=== PATIENT | male | born 1955 | race Caucasian/White ===

== ENCOUNTER 2021-12-29 10:31 | Emergency (ER) | payer MEDICARE, SELFPAY ==
[2021-12-29 10:38] VITALS: BP 132/72; PULSE 102; RESP 20; TEMP 36.6; O2SAT 97
[2021-12-29 11:11] VITALS: BP 158/76; PULSE 98; O2SAT 98
[2021-12-29] MEDS: ondansetron 4 MG Tablet PO (11:22)
[2021-12-29 11:26] LABS: Add Urine Microscopic? NO; Charge for UA Resulting for Rev
--- NOTE | 2021-12-29 11:30 | XRR_ITS ---
PROCEDURE INFORMATION: Exam: XR Abdomen Exam date and time: 12/29/2021 12:00 PM Age: 66 years old Clinical indication: Abdominal pain; Localized; Left lower quadrant (llq); Additional info: Llq pain TECHNIQUE: Imaging protocol: Radiologic exam of the abdomen. Views: 2 Views. Upright and supine views. COMPARISON: CR XR chest 1V [id number] 12/24/2018 6:05 PM FINDINGS: Gastrointestinal tract: Normal. No bowel dilation. Intraperitoneal space: Normal. No free air. Bones/joints: Unremarkable for age. XR/XR abdomen min 2V [id number] IMPRESSION: No acute findings.
[2021-12-29] MEDS: famotidine 20 mg/2 mL INJ 40 MG IVP (11:38)
[2021-12-29 11:40] LABS: Basophils % 0.2 %; Eosinophils % 0.2 %; Hematocrit 48.9 % (42.0-52.0); Hemoglobin 16.7 g/dL (11.7-16.6); Lymphocytes # 0.5 10^3/uL (0.8-4.8); Lymphocytes % 5.6 %; Mean Corpuscular HGB Conc 34.2 g/dL (30.0-36.0); Mean Corpuscular Hemoglobin 30.8 pg (28.0-34.0); Mean Corpuscular Volume 90.1 fl (80-94); Mean Platelet Volume 10.5 fL (7.4-10.4); Monocytes # 0.7 10^3/uL (0.2-0.9); Neutrophils # 8.35 10^3/uL (1.8-7.7); Neutrophils % 86.6 %; Nucleated Red Blood Cells % 0 %; Platelet Count 219 10^3/cmm (130-400); Red Blood Count 5.43 10^6/uL (4.1-5.3); Red Cell Distribution Width 12.7 % (12.1-15.1); White Blood Count 9.6 10^3/uL (4.0-10.0)
[2021-12-29 11:45] LABS: Urine Appearance Clear (CLEAR); Urine Color Yellow (Yellow); pH Urine 5 (5-7)
[2021-12-29 11:46] LABS: Bilirubin Urine Neg (Negative); Blood Urine Neg (Negative); Glucose Urine UA 1+ (Normal); Ketones Urine 1+ (Negative); Leukocyte Esterase Urine Negative (Negative); Nitrate Urine Negative (Negative); Protein Urine Neg (Negative); Urobilinogen Urine Norm (Negative)
[2021-12-29 12:30] VITALS: BP 122/58; O2SAT 93
[2021-12-29 13:01] LABS: Alanine Aminotransferase 64 U/L (0-41); Albumin Level 4.7 g/dL (3.5-5.2); Alkaline Phosphatase 66 U/L (40-130); Blood Urea Nitrogen 21 mg/dL (8-23); C Reactive Protein 27.3 mg/L (0.0-4.9); Calcium 9.3 mg/dL (8.5-10.5); Carbon Dioxide 19 mmol/L (22-29); Chloride 97 mmol/L (98-107); Globulin 2.6 g/dL (1.3-4.6); Glomerular Filtration Rate 84.2 mL/min (90-130); Glucose 180 mg/dL (65-115); Lipase 20 U/L (13-60); Osmolality Calculated 282 mOsm/kg (285-295); Sodium 132 mmol/L (136-145); Total Bilirubin 0.6 mg/dL (0.15-1.2); Total Protein 7.3 g/dL (6.6-8.7)
[2021-12-29 13:02] LABS: Anion Gap 20.4 (5-19); Aspartate Amino Transferase 36 U/L (0-40); Potassium 4.4 mmol/L (3.5-5.1)
--- NOTE | 2021-12-29 13:16 | CTR_ITS ---
PROCEDURE INFORMATION: Exam: CT Abdomen And Pelvis With Contrast Exam date and time: 12/29/2021 1:24 PM Age: 66 years old Clinical indication: Abdominal pain; Localized; Left lower quadrant (llq); Additional info: Llq pain TECHNIQUE: Imaging protocol: Computed tomography of the abdomen and pelvis with contrast. Radiation optimization: All CT scans at this facility use at least one of these dose optimization techniques: automated exposure control; mA and/or kV adjustment per patient size (includes targeted exams where dose is matched to clinical indication); or iterative reconstruction. Contrast material: OMNI 350; Contrast volume: 100 ml; Contrast route: INTRAVENOUS (IV); COMPARISON: CR (ABDOMEN, ) 12/29/2021 12:00 PM RADIATION DOSE METRICS: Total DLP (mGy-cm): 1083.23 FINDINGS: Liver: Hepatic lucency is seen consistent with steatosis. No mass. Gallbladder and bile ducts: Normal. No calcified stones. No ductal dilation. Pancreas: Normal. No ductal dilation. Spleen: Normal. No splenomegaly. Adrenal glands: Normal. No mass. Kidneys and ureters: Bilateral benign renal cysts are seen. No hydronephrosis. Stomach and bowel: There is diverticulosis of the sigmoid colon No obstruction. No mucosal thickening. Appendix: No evidence of appendicitis. Normal appearing appendix Intraperitoneal space: Unremarkable. No free air. No significant fluid collection. Vasculature: Unremarkable. No abdominal aortic aneurysm. Lymph nodes: Unremarkable. No enlarged lymph nodes. Urinary bladder: Unremarkable as visualized. Reproductive: Unremarkable as visualized. 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 Soft tissues: Unremarkable. CT/CT abdomen pelvis w con* [id number] IMPRESSION: 1. No acute findings. 2. Hepatic steatosis. 3. Sigmoid colon diverticulosis 4. Bilateral renal cyst COMMENTS: Consistent with the [employer]'s Incidental Findings Committee white paper (J Am Davion Radiol 2018): Any incidental renal lesion less than 1 cm or classified as too small to characterize, or any incidental cystic renal lesion characterized as simple-appearing, is likely benign. No follow-up imaging is recommended for these lesions per consensus recommendations based on imaging criteria.
[2021-12-29] MEDS: iohexol 350 mg/mL 500 mL Btl (per mL) 100 ML IV (13:26)
--- NOTE | 2021-12-29 13:26 | W.ED.ABDPA2 ---
HPI - Abdominal Pain General: Chief Complaint: Abdominal Pain Stated Complaint: nausea, abd discomfort Time Seen by Provider: 12/29/21 11:23 History of Present Illness: 66-year-old male presents with left lower quadrant abdominal pain. Reports that its started during the evening and night last night and is just gone and gotten worse. He has some mild nausea no vomiting or diarrhea. No fevers or chills. Associated Symptoms: Reports nausea; Denies chills, diarrhea, fever(s) and vomiting Review of Systems Const: Denies: fever(s) or chills Eyes: Denies: change in vision or eye discharge ENMT: Denies: throat pain or ear or mastoid pain Card: Denies: chest pain or palpitations Resp: Denies: dyspnea or productive cough GI: Reports: abdominal pain and nausea; Denies: vomiting or diarrhea : Denies: flank pain or difficulty urinating Musc: Denies: neck pain or back pain Skin/Breast: Denies: rash or erythema Physical Exam Const: COMMON NORMALS: no acute distress, no limitations and alert HENMT: COMMON NORMALS: hearing grossly normal bilaterally and moist oral mucous membranes Eye: COMMON NORMALS: EOMs intact bilaterally and conjunctivae normal CONJUNCTIVA: Yes conjunctivae normal Chest: CHEST: Yes Symmetrical chest wall rise Resp: COMMON NORMALS: normal respiratory effort, No use of accessory muscles and clear to auscultation bilaterally AUSCULTATION: clear to auscultation bilaterally Cardio: COMMON NORMALS: regular rate and regular rhythm RATE: regular rate RHYTHM: regular rhythm GI: COMMON NORMALS: Soft to palpation PALPATION: Yes Soft to palpation, Yes Tenderness to palpation present (GI) Details: LLQ and LUQ and No Guarding due to palpation present (GI) : COMMON NORMALS: Yes no CVA tenderness BLADDER/KIDNEY EXAM: Yes no CVA tenderness Back/Pelvis: COMMON NORMALS: no CVA tenderness Extremity: COMMON NORMALS: full ROM and capillary refill normal Neuro: COMMON NORMALS: moves all extremities, no focal motor deficits and no sensory deficits noted SENSORIUM/ORIENTATION: Yes alert Psych: COMMON NORMALS: Normal thought process present, cooperative and normal affect THOUGHT PROCESS: Normal thought process present Skin: COMMON NORMALS: no rashes or lesions noted and turgor normal GENERAL SKIN EXAM: no rashes or lesions noted and turgor normal Course Vital Signs: Vital signs: Vital Signs Temperature 97.8 F 12/29/21 10:38 Pulse Rate 84 12/29/21 14:19 Respiratory Rate 20 H 12/29/21 10:38 Blood Pressure 111/76 12/29/21 14:19 Pulse Oximetry 93 12/29/21 12:30 Oxygen Delivery Me thod 12/29/21 11:11 MDM - Abdominal Pain Medical Decision Making Patient with slight elevation of CRP. However no acute findings on CT abdomen pelvis. Suspect that he likely has maybe a mild viral gastroenteritis versus potential food poisoning. Patient will be given Bentyl to help with the discomfort along with some Reglan to help with some nausea and what he feels like his difficulty with bowel movements occasionally. Patient should follow-up with his primary care provider in a couple days if his symptoms or not improving. Patient stable and discharged home Lab Data 12/29/21 11:33 12/29/21 12:30 Labs/Radiology: Radiology Impressions Abdomen X-Ray 12/29/21 11:30 IMPRESSION: No acute findings. Abdomen/Pelvis CT 12/29/21 13:16 IMPRESSION: 1. No acute findings. 2. Hepatic steatosis. 3. Sigmoid colon diverticulosis 4. Bilateral renal cyst COMMENTS: Consistent with the [employer]'s Incidental Findings Committee white paper (J Am Davion Radiol 2018): Any incidental renal lesion less than 1 cm or classified as too small to characterize, or any incidental cystic renal lesion characterized as simple-appearing, is likely benign. No follow-up imaging is recommended for these lesions per consensus recommendations based on imaging criteria. Laboratory Results WBC 9.6 10^3/uL (4.0-10.0) 12/29/21 11:33 RBC 5.43 10^6/uL (4.1-5.3) H 12/29/21 11:33 Hgb 16.7 g/dL (11.7-16.6) H 12/29/21 11:33 Hct 48.9 % (42.0-52.0) 12/29/21 11:33 MCV 90.1 fl (80-94) 12/29/21 11:33 MCH 30.8 pg (28.0-34.0) 12/29/21 11:33 MCHC 34.2 g/dL (30.0-36.0) 12/29/21 11:33 RDW 12.7 % (12.1-15.1) 12/29/21 11:33 Plt Count 219 10^3/cmm (130-400) 12/29/21 11:33 MPV 10.5 fL (7.4-10.4) H 12/29/21 11:33 Neut % (Auto) 86.6 % 12/29/21 11:33 Lymph % (Auto) 5.6 % 12/29/21 11:33 [place] % (Auto) 7.0 % 12/29/21 11:33 Eos % (Auto) 0.2 % 12/29/21 11:33 Baso % (Auto) 0.2 % 12/29/21 11:33 Neut # (Auto) 8.35 10^3/uL (1.8-7.7) H 12/29/21 11:33 Lymph # (Auto) 0.5 10^3/uL (0.8-4.8) L 12/29/21 11:33 [place] # (Auto) 0.7 10^3/uL (0.2-0.9) 12/29/21 11:33 Eos # (Auto) 0.0 10^3/uL (0.0-0.8) 12/29/21 11:33 Baso # (Auto) 0.0 10^3/uL (0.0-0.1) 12/29/21 11:33 Nucleated RBC % (auto) 0 % 12/29/21 11:33 Nucleated RBCs # 0.0 /100WBC 12/29/21 11:33 Sodium 132 mmol/L (136-145) L 12/29/21 12:30 Potassium 4.4 mmol/L (3.5-5.1) 12/29/21 12:30 Chloride 97 mmol/L (98-107) L 12/29/21 12:30 Carbon Dioxide 19 mmol/L (22-29) L 12/29/21 12:30 Anion Gap 20.4 (5-19) H 12/29/21 12:30 BUN 21 mg/dL (8-23) 12/29/21 12:30 Creatinine 0.9 mg/dL (0.7-1.2) 12/29/21 12:30 GFR Calculation 84.2 mL/min (90-130) L 12/29/21 12:30 Glucose 180 mg/dL (65-115) H 12/29/21 12:30 Calculated Osmolality 282 mOsm/kg (285-295) L 12/29/21 12:30 Calcium 9.3 mg/dL (8.5-10.5) 12/29/21 12:30 Total Bilirubin 0.6 mg/dL (0.15-1.2) 12/29/21 12:30 AST 36 U/L (0-40) 12/29/21 12:30 ALT 64 U/L (0-41) H 12/29/21 12:30 Alkaline Phosphatase 66 U/L (40-130) 12/29/21 12:30 C-Reactive Protein 27.3 mg/L (0.0-4.9) H 12/29/21 12:30 Total Protein 7.3 g/dL (6.6-8.7) 12/29/21 12:30 Albumin 4.7 g/dL (3.5-5.2) 12/29/21 12:30 Globulin 2.6 g/dL (1.3-4.6) 12/29/21 12:30 Lipase 20 U/L (13-60) 12/29/21 12:30 Urine Color Yellow (Yellow) 12/29/21 11:21 Urine Appearance Clear (CLEAR) 12/29/21 11:21 Urine pH 5 (5-7) 12/29/21 11:21 Ur Specific [place] 1.020 (1.005-1.030) 12/29/21 11:21 Urine Protein Neg (Negative) 12/29/21 11:21 Urine Glucose (UA) 1+ (Normal) H 12/29/21 11:21 Urine Ketones 1+ (Negative) H 12/29/21 11:21 Urine Blood Neg (Negative) 12/29/21 11:21 Urine Nitrate Negative (Negative) 12/29/21 11:21 Urine Bilirubin Neg (Negative) 12/29/21 11:21 Urine Urobilinogen Norm mg/dL (Negative) 12/29/21 11:21 Ur Leukocyte Esterase Negative (Negative) 12/29/21 11:21 Discharge Plan Discharge Patient Disposition: Home Clinical Impression: Left-sided abdominal pain of unknown etiology Condition: Stable Prescriptions: New Reglan 5 mg tablet 5 mg PO QID Qty: 20 0RF dicyclomine 20 mg tablet 20 mg PO TID PRN (Reason: abdominal discomfort) Qty: 20 0RF Discharge Orders: Discharge ED (Routine); Ordered 12/29/21 Ordered By: Miguel Ángel Dill Referrals: Earlene Iverson MD [Primary Care Provider] - Discharge Diet: Advance as tolerated Discharge Activity: Resume usual activity Patient Instructions: Abdominal Pain (ED), Opioid Safety, Pain Management Activity Restrictions/Additional Instructions: Follow-up with your primary care provider in 1 week if symptoms or not improved. Coding Level of Care Code ED Reinsurance Analyst for Chg Fwd Exam Comprehensive
[2021-12-29 14:19] VITALS: BP 111/76; PULSE 84
== END 2021-12-29 14:20 | disposition home or self-care (01) ==
PROVIDERS: Emergency Medicine; Emergency Provider Student in an Organized Health Care Education/Training Program; PCP Family Medicine
DX: R10.9 Unspecified abdominal pain (principal)
CPT/HCPCS: 36415; 74019; 74177; 80053; 81003; 83690; 85025; 86140; 96374; 99285; J3490; Q0162; Q9967

== ENCOUNTER 2022-02-22 07:01 | Emergency (ER) | payer MEDICARE, SELFPAY ==
[2022-02-22 07:05] VITALS: BP 155/81; PULSE 72; RESP 14; TEMP 36.4; O2SAT 99; BMI 35.7
--- NOTE | 2022-02-22 07:19 | XRR_ITS ---
PROCEDURE INFORMATION: Exam: XR Chest Exam date and time: 02/22/2022 7:41 AM Age: 66 years old Clinical indication: Pain; Right-sided; Additional info: Chest pain TECHNIQUE: Imaging protocol: Radiologic exam of the chest. Views: 1 view. COMPARISON: CR XR chest 1V [id number] 12/24/2018 6:05 PM FINDINGS: Lungs: No airspace infiltrate. Pleural spaces: No evidence of pleural effusion or pneumothorax. Heart/Mediastinum: Unremarkable. No cardiomegaly. Bones/joints: No significant osseous abnormality. XR/XR chest 1V portable [id number] IMPRESSION: No acute findings.
--- NOTE | 2022-02-22 07:21 | ECG_ITS ---
[facility] Test Date: 2022-02-22 Pat Name: Coy Young Department: Room: Gender: Male Payment Processor: : 1955 Requested By: Dionicio Azar Order Number: [id number] Reading MD: Horace Benitez M.D. Measurements Intervals [place] Rate: 64 P: 27 DC: 155 QRS: 56 QRSD: 95 T: 56 QT: 391 QTc: 404 Interpretive Statements SINUS RHYTHM WITH OCCASIONAL VENTRICULAR PREMATURE COMPLEXES Compared to ECG 12/24/2018 17:17:41 Ventricular premature complex(es) now present Electronically Signed On 02-22-2022 14:25:31 [employer]CE[employer]ENT by Horace Benitez M.D. [email or web address]
--- NOTE | 2022-02-22 07:21 | W.ED.CHESTPA ---
Documented by User: ABDELRAHMAN Ho 02/22/22 11:09 HPI - Chest Pain General: Chief Complaint: Chest Pain Stated Complaint: chest/back/right arm pain Time Seen by Provider: 02/22/22 07:05 History of Present Illness: Patient is a 66-year-old male that presents to the emergency department with midline thoracic back pain that radiates to sternal chest pain. Onset of symptoms, woke him up this morning. Patient denies shortness of breath nausea or vomiting. Denies syncope or dizziness. Denies fever or chills. Patient has had similar issues with thoracic back pain in the past. This usually resolves with activity. Today, his symptoms did not Patient did have a recent upper respiratory illness, last week. He was treated with amoxicillin twice daily for 7 days. Patient does have an medical history that includes diabetes, hypertension, sleep apnea, arrhythmia. Patient is immunized for flu and COVID. Associated symptoms: Deny abdominal pain, dyspnea, fever(s), nausea, palpitations or vomiting Review of Systems General: Reports: 10 or more systems reviewed and unremarkable except in HPI and below Const: Denies: fever(s), chills, change in appetite, change in weight, fatigue or malaise Eyes: Denies: change in vision, eye discomfort, eye discharge or eye redness ENMT: Denies: throat pain, enlarged tonsils, odynophagia, hoarseness, ear or mastoid pain, ear discharge, change in hearing, tinnitus, nasal discharge, nasal congestion, post nasal drip or sinus pain Card: Denies: chest pain, palpitations, irregular heart rhythm, edema, dyspnea on exertion, orthopnea or leg pain with exertion Resp: Denies: dyspnea, productive cough, non-productive cough, wheezing, stridor or chest congestion GI: Denies: abdominal pain, nausea, vomiting, dysphagia, diarrhea, constipation, bloating, GI cramping or hematochezia : Denies: flank pain, dysuria, urinary frequency, urinary urgency, urinary hesitancy, oliguria or hematuria Musc: Denies: neck pain, back pain, extremity pain, joint pain, joint swelling, joint redness, joint warmth or muscle weakness Skin/Breast: Denies: rash, pruritus, erythema, photosensitivity or new lesions Neuro: Denies: headache(s), numbness in extremities, weakness in extremities, sensory changes, lack of coordination, difficulty walking, frequent falls, dizziness, confusion, Slurred speech present, difficulty communicating thoughts, seizure-like activity or involuntary movements Endo: Denies: polyuria, polydipsia or tired all the time Shankar/Lymph: Denies: easy bruising or easy bleeding Physical Exam Const: COMMON NORMALS: no acute distress, average body habitus, patient oriented x3 and well nourished GENERAL APPEARANCE: cooperative ORIENTATION/CONSCIOUSNESS: Yes oriented to person, Yes oriented to place and Yes oriented to time HENMT: COMMON NORMALS: normocephalic, atraumatic and hearing grossly normal bilaterally HEAD & SCALP: normal to inspection, normocephalic and atraumatic FACE & SINUS: face symmetric MOUTH: Normal oral and palatal mucosa present Eye: COMMON NORMALS: Equal, round and reactive pupils present, EOMs intact bilaterally and no scleral icterus ALIGNMENT: Yes alignment normal PUPIL: Yes Equal, round and reactive pupils present Neck/C-Spine: COMMON NORMALS: full ROM, supple, no meningeal signs and no JVD GENERAL: Yes normal visual inspection CERVICAL SPINE: Yes cervical ROM normal Lymph: LYMPHATIC: no lymphadenopathy noted Chest: COMMONS NORMALS: normal inspection of the chest Breast/axilla inspection: Yes no chest deformity, asymmetry, normal contours, no nodules, masses, tenderness Resp: COMMON NORMALS: normal respiratory effort, No retractions, No use of accessory muscles and clear to auscultation bilaterally EFFORT & INSPECTION: Yes able to speak in complete sentences, Yes symmetric chest movement, No abnormal respiratory pattern, No tachypneic and No respiratory distress AUSCULTATION: clear to auscultation bilaterally Cardio: COMMON NORMALS: no JVD, regular rate, regular rhythm and Peripheral pulses 2+ throughout RATE: regular rate RHYTHM: regular rhythm PERIPHERAL PULSES: Peripheral pulses 2+ throughout GI: COMMON NORMALS: Normal to inspection, nondistended, normoactive bowel sounds present, Soft to palpation and non-tender INSPECTION: Yes normal to inspection PALPATION: Yes Soft to palpation Back/Pelvis: COMMON NORMALS: thoracic and lumbar spine normal to inspection, no thoracic nor lumbar tenderness, thoraco-lumbar ROM normal and straight leg raise negative bilaterally GENERAL BACK: No ecchymosis THORACIC SPINE/UPPER BACK: Yes normal to inspection LUMBAR SPINE/LOWER BACK: Yes normal to inspection and Yes straight leg raise negative bilaterally Extremity: COMMON NORMALS: normal to inspection, full ROM and capillary refill normal GENERAL: Yes normal exam except as noted Neuro: COMMON NORMALS: patient oriented x3 SENSORIUM/ORIENTATION: Yes oriented to person, Yes oriented to place and Yes oriented to time MENINGEAL SIGNS: Yes no meningeal signs Psych: COMMON NORMALS: mental status grossly normal, Normal thought process present, cooperative, normal affect, speech normal and activity/motor behavior normal SPEECH: Yes normal speech THOUGHT PROCESS: Normal thought process present Course Vital Signs: Vital signs: Vital Signs Temperature 97.6 F 02/22/22 07:05 Pulse Rate 66 02/22/22 09:18 Respiratory Rate 18 02/22/22 08:07 Blood Pressure 144/86 02/22/22 09:18 Pulse Oximetry 97 02/22/22 09:18 Oxygen Delivery Me thod 02/22/22 08:07 MDM - Chest Pain Medical Decision Making Patient arrives with complaints of thoracic back pain that radiates to his sternum. Onset sometime during the night. History of AV block, hypertension, diabetes. Patient also has a history of kidney stones. In reviewing his records, he has a history of high-grade AV block that was observed on Holter monitor in the fall 2021. He was referred to tower air traffic control specialist who recommended no intervention according to Dr Dunham at [facility]. Last echocardiogram was in 2020. At that time he had normal left ventricular function with an EF of 62%. Patient's differential diagnosis will include: ACS, congestive heart failure, pulmonary embolism, GERD, symptomatic hiatal hernia, COPD, asthma, pneumonia, pneumothorax, pericarditis, myocarditis, aortic dissection, kidney stone. EKG completed at 721 reveals sinus rhythm with occasional ventricular premature complexes. 64 bpm with a QTC of 400. No evidence of ectopy, ST elevation or abnormal T wave Patient was treated with morphine and Zofran. Had improvement in his symptoms. Laboratory studies reveal no leukocytosis, anemias, electrolyte disturbance, organ dysfunction. There is no evidence of heart failure and troponin is not elevated. Chest x-ray was unremarkable. He has undergone repeat EKG and repeat/2-hour troponin which is unchanged. His residual symptoms, I trialed a dose of Toradol. Symptoms continue to improve. Without complete resolution of his symptoms I did offer to further investigate this thoracic back pain that radiates to the sternum. I offered him a CT chest which she is declined. Patient is going to follow-up with Dr. High, his machine tool electrician, this week. I have advised the patient to return to the emergency department for new concerning or worsening symptoms. All questions answered Lab Data 02/22/22 07:40 02/22/22 07:40 Radiology Impressions Chest X-Ray 02/22/22 07:19 IMPRESSION: No acute findings. Laboratory Results WBC 7.6 10^3/uL (4.0-10.0) 02/22/22 07:40 RBC 5.15 10^6/uL (4.1-5.3) 02/22/22 07:40 Hgb 15.7 g/dL (11.7-16.6) 02/22/22 07:40 Hct 47.1 % (42.0-52.0) 02/22/22 07:40 MCV 91.5 fl (80-94) 02/22/22 07:40 MCH 30.5 pg (28.0-34.0) 02/22/22 07:40 MCHC 33.3 g/dL (30.0-36.0) 02/22/22 07:40 RDW 13.0 % (12.1-15.1) 02/22/22 07:40 Plt Count 253 10^3/cmm (130-400) 02/22/22 07:40 MPV 10.4 fL (7.4-10.4) 02/22/22 07:40 Neut % (Auto) 67.0 % 02/22/22 07:40 Lymph % (Auto) 19.7 % 02/22/22 07:40 [place] % (Auto) 10.6 % 02/22/22 07:40 Eos % (Auto) 1.1 % 02/22/22 07:40 Baso % (Auto) 0.7 % 02/22/22 07:40 Neut # (Auto) 5.08 10^3/uL (1.8-7.7) 02/22/22 07:40 Lymph # (Auto) 1.5 10^3/uL (0.8-4.8) 02/22/22 07:40 [place] # (Auto) 0.8 10^3/uL (0.2-0.9) 02/22/22 07:40 Eos # (Auto) 0.1 10^3/uL (0.0-0.8) 02/22/22 07:40 Baso # (Auto) 0.1 10^3/uL (0.0-0.1) 02/22/22 07:40 Nucleated RBC % (auto) 0 % 02/22/22 07:40 Nucleated RBCs # 0.0 /100WBC 02/22/22 07:40 Sodium 139 mmol/L (136-145) 02/22/22 07:40 Potassium 4.4 mmol/L (3.5-5.1) 02/22/22 07:40 Chloride 102 mmol/L (98-107) 02/22/22 07:40 Carbon Dioxide 24 mmol/L (22-29) 02/22/22 07:40 Anion Gap 17.4 (5-19) 02/22/22 07:40 BUN 15 mg/dL (8-23) 02/22/22 07:40 Creatinine 0.9 mg/dL (0.7-1.2) 02/22/22 07:40 GFR Calculation 84.2 mL/min (90-130) L 02/22/22 07:40 Glucose 153 mg/dL (65-115) H 02/22/22 07:40 POC Glucose 144 mg/dL (70-110) H 02/22/22 07:46 Calculated Osmolality 292 mOsm/kg (285-295) 02/22/22 07:40 Calcium 10.3 mg/dL (8.5-10.5) 02/22/22 07:40 Total Bilirubin 0.5 mg/dL (0.15-1.2) 02/22/22 07:40 AST 28 U/L (0-40) 02/22/22 07:40 ALT 68 U/L (0-41) H 02/22/22 07:40 Alkaline Phosphatase 69 U/L (40-130) 02/22/22 07:40 Troponin T Baseline 13 ng/L (0-15) 02/22/22 07:40 Troponin T 120 Minute 10.30 ng/L (0-15) 02/22/22 09:53 Delta Troponin T -2.7 ABS# (0-10) L 02/22/22 09:53 NT-Pro-B Natriuret Pep 35 pg/mL (0-125) 02/22/22 07:40 Total Protein 7.0 g/dL (6.6-8.7) 02/22/22 07:40 Albumin 4.5 g/dL (3.5-5.2) 02/22/22 07:40 Globulin 2.5 g/dL (1.3-4.6) 02/22/22 07:40 Lipase 25 U/L (13-60) 02/22/22 07:40 Urine Color Colorless (Yellow) 02/22/22 09:20 Urine Appearance Clear (CLEAR) 02/22/22 09:20 Urine pH 6.5 (5-7) 02/22/22 09:20 Ur Specific [place] 1.010 (1.005-1.030) 02/22/22 09:20 Urine Protein Neg (Negative) 02/22/22 09:20 Urine Glucose (UA) Norm (Normal) 02/22/22 09:20 Urine Ketones Negative (Negative) 02/22/22 09:20 Urine Blood Neg (Negative) 02/22/22 09:20 Urine Nitrate Negative (Negative) 02/22/22 09:20 Urine Bilirubin Neg (Negative) 02/22/22 09:20 Urine Urobilinogen Norm mg/dL (Negative) 02/22/22 09:20 Ur Leukocyte Esterase Negative (Negative) 02/22/22 09:20 Discharge Plan Discharge Patient Disposition: Home Clinical Impression: Atypical chest pain, Acute midline thoracic back pain Condition: Stable Prescriptions: No Action Reglan 5 mg tablet 5 mg PO QID Qty: 20 0RF dicyclomine 20 mg tablet 20 mg PO TID PRN (Reason: abdominal discomfort) Qty: 20 0RF Discharge Orders: Discharge ED (Routine); Ordered 02/22/22 Ordered By: Dionicio Nuñez Referrals: Earlene Iverson MD [Primary Care Provider] - Discharge Diet: Advance as tolerated Discharge Activity: Resume usual activity Patient Instructions: Chest Pain - Noncardiac, Back Pain (ED) Activity Restrictions/Additional Instructions: Please return to the emergency department for new concerning or worsening symptoms. Includes redevelopment of your thoracic back/chest pain and/or any development of shortness of breath, dizziness, syncope. Please take all your medications as prescribed Please follow-up with your primary doctor as scheduled Coding Level of Care Code ED Cork Molder for Chg Fwd Exam Comprehensive Documented by User: Vishal Marlow DO 02/24/22 06:03 HPI - Chest Pain General: Chief Complaint: Chest Pain Stated Complaint: chest/back/right arm pain Time Seen by Provider: 02/22/22 07:05 Course Vital Signs: Vital signs: Vital Signs Temperature 97.6 F 02/22/22 07:05 Pulse Rate 66 02/22/22 09:18 Respiratory Rate 18 02/22/22 08:07 Blood Pressure 144/86 02/22/22 09:18 Pulse Oximetry 97 02/22/22 09:18 Oxygen Delivery Me thod 02/22/22 08:07 MDM - Chest Pain Medical Decision Making Patient arrives with complaints of thoracic back pain that radiates to his sternum. Onset sometime during the night. History of AV block, hypertension, diabetes. Patient also has a history of kidney stones. In reviewing his records, he has a history of high-grade AV block that was observed on Holter monitor in the fall 2021. He was referred to tower air traffic control specialist who recommended no intervention according to Dr Dunham at [facility]. Last echocardiogram was in 2020. At that time he had normal left ventricular function with an EF of 62%. Patient's differential diagnosis will include: ACS, congestive heart failure, pulmonary embolism, GERD, symptomatic hiatal hernia, COPD, asthma, pneumonia, pneumothorax, pericarditis, myocarditis, aortic dissection, kidney stone. EKG completed at 721 reveals sinus rhythm with occasional ventricular premature complexes. 64 bpm with a QTC of 400. No evidence of ectopy, ST elevation or abnormal T wave Patient was treated with morphine and Zofran. Had improvement in his symptoms. Laboratory studies reveal no leukocytosis, anemias, electrolyte disturbance, organ dysfunction. There is no evidence of heart failure and troponin is not elevated. Chest x-ray was unremarkable. He has undergone repeat EKG and repeat/2-hour troponin which is unchanged. His residual symptoms, I trialed a dose of Toradol. Symptoms continue to improve. Without complete resolution of his symptoms I did offer to further investigate this thoracic back pain that radiates to the sternum. I offered him a CT chest which she is declined. Patient is going to follow-up with Dr. High, his machine tool electrician, this week. I have advised the patient to return to the emergency department for new concerning or worsening symptoms. All questions answered Chart reviewed and patient discussed with midlevel. Agree with assessment and plan. Medical Records I reviewed the patient's medical records. Lab Data I reviewed the patient's lab results. 02/22/22 07:40 02/22/22 07:40 Radiology Impressions Chest X-Ray 02/22/22 07:19 IMPRESSION: No acute findings. Laboratory Results WBC 7.6 10^3/uL (4.0-10.0) 02/22/22 07:40 RBC 5.15 10^6/uL (4.1-5.3) 02/22/22 07:40 Hgb 15.7 g/dL (11.7-16.6) 02/22/22 07:40 Hct 47.1 % (42.0-52.0) 02/22/22 07:40 MCV 91.5 fl (80-94) 02/22/22 07:40 MCH 30.5 pg (28.0-34.0) 02/22/22 07:40 MCHC 33.3 g/dL (30.0-36.0) 02/22/22 07:40 RDW 13.0 % (12.1-15.1) 02/22/22 07:40 Plt Count 253 10^3/cmm (130-400) 02/22/22 07:40 MPV 10.4 fL (7.4-10.4) 02/22/22 07:40 Neut % (Auto) 67.0 % 02/22/22 07:40 Lymph % (Auto) 19.7 % 02/22/22 07:40 [place] % (Auto) 10.6 % 02/22/22 07:40 Eos % (Auto) 1.1 % 02/22/22 07:40 Baso % (Auto) 0.7 % 02/22/22 07:40 Neut # (Auto) 5.08 10^3/uL (1.8-7.7) 02/22/22 07:40 Lymph # (Auto) 1.5 10^3/uL (0.8-4.8) 02/22/22 07:40 [place] # (Auto) 0.8 10^3/uL (0.2-0.9) 02/22/22 07:40 Eos # (Auto) 0.1 10^3/uL (0.0-0.8) 02/22/22 07:40 Baso # (Auto) 0.1 10^3/uL (0.0-0.1) 02/22/22 07:40 Nucleated RBC % (auto) 0 % 02/22/22 07:40 Nucleated RBCs # 0.0 /100WBC 02/22/22 07:40 Sodium 139 mmol/L (136-145) 02/22/22 07:40 Potassium 4.4 mmol/L (3.5-5.1) 02/22/22 07:40 Chloride 102 mmol/L (98-107) 02/22/22 07:40 Carbon Dioxide 24 mmol/L (22-29) 02/22/22 07:40 Anion Gap 17.4 (5-19) 02/22/22 07:40 BUN 15 mg/dL (8-23) 02/22/22 07:40 Creatinine 0.9 mg/dL (0.7-1.2) 02/22/22 07:40 GFR Calculation 84.2 mL/min (90-130) L 02/22/22 07:40 Glucose 153 mg/dL (65-115) H 02/22/22 07:40 POC Glucose 144 mg/dL (70-110) H 02/22/22 07:46 Calculated Osmolality 292 mOsm/kg (285-295) 02/22/22 07:40 Calcium 10.3 mg/dL (8.5-10.5) 02/22/22 07:40 Total Bilirubin 0.5 mg/dL (0.15-1.2) 02/22/22 07:40 AST 28 U/L (0-40) 02/22/22 07:40 ALT 68 U/L (0-41) H 02/22/22 07:40 Alkaline Phosphatase 69 U/L (40-130) 02/22/22 07:40 Troponin T Baseline 13 ng/L (0-15) 02/22/22 07:40 Troponin T 120 Minute 10.30 ng/L (0-15) 02/22/22 09:53 Delta Troponin T -2.7 ABS# (0-10) L 02/22/22 09:53 NT-Pro-B Natriuret Pep 35 pg/mL (0-125) 02/22/22 07:40 Total Protein 7.0 g/dL (6.6-8.7) 02/22/22 07:40 Albumin 4.5 g/dL (3.5-5.2) 02/22/22 07:40 Globulin 2.5 g/dL (1.3-4.6) 02/22/22 07:40 Lipase 25 U/L (13-60) 02/22/22 07:40 Urine Color Colorless (Yellow) 02/22/22 09:20 Urine Appearance Clear (CLEAR) 02/22/22 09:20 Urine pH 6.5 (5-7) 02/22/22 09:20 Ur Specific [place] 1.010 (1.005-1.030) 02/22/22 09:20 Urine Protein Neg (Negative) 02/22/22 09:20 Urine Glucose (UA) Norm (Normal) 02/22/22 09:20 Urine Ketones Negative (Negative) 02/22/22 09:20 Urine Blood Neg (Negative) 02/22/22 09:20 Urine Nitrate Negative (Negative) 02/22/22 09:20 Urine Bilirubin Neg (Negative) 02/22/22 09:20 Urine Urobilinogen Norm mg/dL (Negative) 02/22/22 09:20 Ur Leukocyte Esterase Negative (Negative) 02/22/22 09:20 Discharge Plan Discharge Patient Disposition: Home Clinical Impression: Atypical chest pain, Acute midline thoracic back pain Condition: Stable Prescriptions: No Action Reglan 5 mg tablet 5 mg PO QID Qty: 20 0RF dicyclomine 20 mg tablet 20 mg PO TID PRN (Reason: abdominal discomfort) Qty: 20 0RF Discharge Orders: Discharge ED (Routine); Ordered 02/22/22 Ordered By: Dionicio Azar [facility] Referrals: Earlene Iverson MD [Primary Care Provider] - Discharge Diet: Advance as tolerated Discharge Activity: Resume usual activity Patient Instructions: Chest Pain - Noncardiac, Back Pain (ED) Activity Restrictions/Additional Instructions: Please return to the emergency department for new concerning or worsening symptoms. Includes redevelopment of your thoracic back/chest pain and/or any development of shortness of breath, dizziness, syncope. Please take all your medications as prescribed Please follow-up with your primary doctor as scheduled Coding Level of Care Code ED Cork Molder for Dedra Fwd Exam Comprehensive
[2022-02-22] MEDS: sodium chloride 0.9% 500 ML 999 ML IV (07:47)
[2022-02-22] MEDS: ondansetron 2 mg/ML SDV 2 mL 4 MG IVP (07:48)
[2022-02-22] MEDS: morphine 4 mg/mL SDV 1 mL IVP (07:49)
[2022-02-22] MEDS: aspirin 81 mg Chew Tablet 324 MG PO (07:50)
[2022-02-22 07:59] LABS: Basophils # 0.1 10^3/uL (0.0-0.1); Basophils % 0.7 %; Eosinophils # 0.1 10^3/uL (0.0-0.8); Eosinophils % 1.1 %; Hematocrit 47.1 % (42.0-52.0); Hemoglobin 15.7 g/dL (11.7-16.6); Lymphocytes # 1.5 10^3/uL (0.8-4.8); Lymphocytes % 19.7 %; Mean Corpuscular HGB Conc 33.3 g/dL (30.0-36.0); Mean Corpuscular Hemoglobin 30.5 pg (28.0-34.0); Mean Corpuscular Volume 91.5 fl (80-94); Mean Platelet Volume 10.4 fL (7.4-10.4); Monocytes # 0.8 10^3/uL (0.2-0.9); Monocytes % 10.6 %; Neutrophils # 5.08 10^3/uL (1.8-7.7); Nucleated Red Blood Cells % 0 %; Platelet Count 253 10^3/cmm (130-400); Red Blood Count 5.15 10^6/uL (4.1-5.3); White Blood Count 7.6 10^3/uL (4.0-10.0)
[2022-02-22 08:00] LABS: Glucose Point of Care 144 mg/dL (70-110)
[2022-02-22 08:07] VITALS: BP 123/72; PULSE 65; RESP 18; O2SAT 97
[2022-02-22 08:28] LABS: Troponin(5th) Baseline 13 ng/L (0-15)
[2022-02-22 08:36] LABS: Alanine Aminotransferase 68 U/L (0-41); Albumin Level 4.5 g/dL (3.5-5.2); Alkaline Phosphatase 69 U/L (40-130); Aspartate Amino Transferase 28 U/L (0-40); Blood Urea Nitrogen 15 mg/dL (8-23); Calcium 10.3 mg/dL (8.5-10.5); Carbon Dioxide 24 mmol/L (22-29); Chloride 102 mmol/L (98-107); Globulin 2.5 g/dL (1.3-4.6); Glomerular Filtration Rate 84.2 mL/min (90-130); Glucose 153 mg/dL (65-115); Lipase 25 U/L (13-60); NT Pro B Type Natriuretic Pept 35 pg/mL (0-125); Osmolality Calculated 292 mOsm/kg (285-295); Sodium 139 mmol/L (136-145); Total Bilirubin 0.5 mg/dL (0.15-1.2)
[2022-02-22 08:57] LABS: Anion Gap 17.4 (5-19); Potassium 4.4 mmol/L (3.5-5.1)
[2022-02-22] MEDS: ketorolac 30 mg/mL INJ 15 MG IVP (09:14)
[2022-02-22 09:18] VITALS: BP 144/86; PULSE 66; O2SAT 97
--- NOTE | 2022-02-22 09:19 | ECG_ITS ---
[facility] Test Date: 2022-02-22 Pat Name: Coy Young Department: Room: Gender: Male [employer]ger: : 1955 Requested By: Dionicio Azar Order Number: [id number] Reading MD: Horace Benitez M.D. Measurements Intervals [place] Rate: 65 P: 59 RI: 163 QRS: 59 QRSD: 96 T: 54 QT: 405 QTc: 422 Interpretive Statements SINUS RHYTHM WITH FREQUENT VENTRICULAR PREMATURE COMPLEXES ABNORMAL RHYTHM ECG Compared to ECG 02/22/2022 07:21:51 No significant changes Electronically Signed On 02-22-2022 14:28:51 NORMALIZER by Horace Benitez M.D. [email or web address]
[2022-02-22 09:37] LABS: Add Urine Microscopic? NO; Charge for UA Resulting for Rev
[2022-02-22 10:02] LABS: Bilirubin Urine Neg (Negative); Blood Urine Neg (Negative); Glucose Urine UA Norm (Normal); Ketones Urine Negative (Negative); Leukocyte Esterase Urine Negative (Negative); Nitrate Urine Negative (Negative); Protein Urine Neg (Negative); Urine Appearance Clear (CLEAR); Urine Color Colorless (Yellow); Urobilinogen Urine Norm (Negative); pH Urine 6.5 (5-7)
[2022-02-22 11:26] LABS: Troponin 5 2HR Delta -2.7 ABS# (0-10)
== END 2022-02-22 11:17 | disposition home or self-care (01) ==
PROVIDERS: Emergency Provider Nurse Practitioner; PCP Family Medicine
DX: M54.6 Pain in thoracic spine (principal); R07.89 Other chest pain
CPT/HCPCS: 36415; 36416; 71045; 80053; 81003; 82962; 83690; 83880; 84484; 85025; 93005; 96374; 96375; 99285; J1885; J2270; J2405; J7040

== ENCOUNTER 2024-01-16 12:49 | Emergency (ER) | payer MEDICARE, SELFPAY ==
--- NOTE | 2024-01-16 12:52 | ECG_ITS ---
[facility]24[facility]16 Pat Name: Coy Young Department: Room: Gender: Male [employer]: : 1955 Requested By: Cal Dukes Order Number: [id number] Reading MD: ELROY ZAVALA Measurements Intervals [place] Rate: 74 P: 37 RI: 162 QRS: 42 QRSD: 86 T: 44 QT: 378 QTc: 422 Interpretive Statements SINUS RHYTHM Compared to ECG 02/22/2022 09:44:19 Ventricular premature complex(es) no longer present Electronically Signed On 01-18-2024 16:12:08 SIEVE MAKER by ELROY ZAVALA [id number]
--- NOTE | 2024-01-16 12:52 | XRR_ITS ---
PROCEDURE INFORMATION: Exam: XR Chest Exam date and time: 01/16/2024 12:58 PM Age: 68 years old Clinical indication: Shortness of breath; Patient HX: Epigastric pain; SOB TECHNIQUE: Imaging protocol: Radiologic exam of the chest. Views: 1 view. COMPARISON: CR XR chest 1V portable [id number] 02/22/2022 7:41 AM FINDINGS: Lungs: Unremarkable. No consolidation. Pleural spaces: Unremarkable. No pleural effusion. No pneumothorax. Heart/Mediastinum: Unremarkable. No cardiomegaly. Bones/joints: Unremarkable. XR/XR chest 1V portable [id number] IMPRESSION: No acute findings.
[2024-01-16 13:03] VITALS: BP 154/99; PULSE 78; RESP 17; TEMP 36.5; O2SAT 99; BMI 34.4
--- NOTE | 2024-01-16 13:13 | W.ED.SOB ---
HPI - SOB/Dyspnea General: Chief Complaint: Shortness of Breath/Dyspnea Stated Complaint: SOB, pressure in upper abd Time Seen by Provider: 01/16/24 13:04 History of Present Illness: HPI Narrative: 83-year-old male presents emergency room complaining of some shortness of breath. He states his biggest issue is he feels like he cannot take a deep breath. He denies any chest pain denies any cough. No fever no abdominal pain he just feels excessively full he has not had any vomiting or diarrhea no hematochezia melena hematemesis or coffee-ground emesis no dysuria urgency or frequency Associated symptoms: Deny abdominal pain, chest pain or fever(s) Related Data Home Medications Medication Instructions Recorded Confirmed omeprazole 20 mg capsule,delayed 20 mg PO DAILY 04/13/23 01/16/24 release fluoride (sodium) 1.1 % dental gel 1 applic PO QPM 01/16/24 01/16/24 hydrocodone 10 mg-acetaminophen 1 tab PO Q4H 01/16/24 01/16/24 325 mg tablet tamsulosin 0.4 mg capsule 0.4 mg PO DAILY 01/16/24 01/16/24 valsartan 160 1 tab PO BID 01/16/24 01/16/24 mg-hydrochlorothiazide 12.5 mg tablet Allergies Allergy/AdvReac Type Severity Reaction Status Date / Time Alpha-Gal Allergy Intermediate ADR-Diarrhe Verified 04/13/23 09:19 ([id number]-0,3-Gala a Review of Systems Const: Denies: fever(s) or chills Card: Denies: chest pain Resp: Denies: dyspnea GI: Denies: abdominal pain : Denies: dysuria, urinary frequency or urinary urgency Musc: Denies: neck pain or back pain Skin/Breast: Denies: rash Physical Exam Const: COMMON NORMALS: no acute distress GENERAL APPEARANCE: cooperative and comfortable ORIENTATION/CONSCIOUSNESS: Yes awake, Yes oriented to person, Yes oriented to place and Yes oriented to time HENMT: COMMON NORMALS: normocephalic, atraumatic and hearing grossly normal bilaterally HEAD & SCALP: normocephalic and atraumatic Resp: COMMON NORMALS: normal respiratory effort, No retractions, No use of accessory muscles and clear to auscultation bilaterally AUSCULTATION: clear to auscultation bilaterally Cardio: COMMON NORMALS: regular rate, regular rhythm and No murmurs present (Cardio) RATE: regular rate RHYTHM: regular rhythm GI: COMMON NORMALS: Soft to palpation and No hepatosplenomegaly present AUSCULTATION: Yes normoactive bowel sounds PALPATION: Yes Soft to palpation, No Tenderness to palpation present (GI), No Guarding due to palpation present (GI) and Yes No hepatosplenomegaly present Extremity: COMMON NORMALS: normal to inspection, capillary refill normal, no clubbing, cyanosis or edema, no calf tenderness and no pedal edema Neuro: SENSORIUM/ORIENTATION: Yes oriented to person, Yes oriented to place and Yes oriented to time Skin: COMMON NORMALS: no rashes or lesions noted GENERAL SKIN EXAM: no rashes or lesions noted Course Vital Signs: Vital signs: Vital Signs Temperature 97.7 F 01/16/24 13:03 Pulse Rate 73 01/16/24 16:43 Respiratory Rate 17 01/16/24 13:03 Blood Pressure 117/69 01/16/24 16:43 Pulse Oximetry 95 01/16/24 16:43 Oxygen Delivery Me thod Room Air 01/16/24 14:29 MDM - SOB/Dyspnea Medical Decision Making Cardiac enzymes negative CT negative he is complaining abdominal discomfort. Chest x-ray normal. Sats have been normal we ambulated him as well he had no hypoxia with ambulation he has not been tachycardic he is not having any significant chest pain at this time he does have a lot of GI issues he also has some sleep apnea issues he may have more trouble to his BiPAP at home recently. Encouraged to follow-up with his primary care doctor regarding the BiPAP and sleep issues. No emergent findings at this time reviewed labs imaging and EKG as found in the chart discussed results with patient. Medical Records I reviewed the patient's medical records. Lab Data I reviewed the patient's lab results. 01/16/24 13:22 01/16/24 13:22 Labs/Radiology: Radiology Impressions Chest X-Ray 01/16/24 12:52 IMPRESSION: No acute findings. Abdomen/Pelvis CT 01/16/24 14:32 IMPRESSION: 1. No acute findings in the abdomen/pelvis. 2. Diffuse bladder wall thickening is likely exaggerated by underdistention and may be due to chronic outlet obstruction. Correlate with urinalysis and physical exam findings to exclude cystitis. 3. Hepatic steatosis. 4. Mild splenomegaly. 5. Punctate nonobstructing left renal calculi. 6. Prostatomegaly. Correlate with the of the levels. 7. Fat containing right adrenal nodule is compatible with an adrenal myelolipoma. Laboratory Results WBC 8.61 10^3/uL (3.29-11.43) 01/16/24 13:22 RBC 4.95 10^6/uL (3.85-5.65) 01/16/24 13:22 Hgb 15.40 g/dL (11.27-16.99) 01/16/24 13:22 Hct 45.5 % (37-53) 01/16/24 13:22 MCV 91.9 fl (82-101) 01/16/24 13:22 MCH 31.1 pg (27-33) 01/16/24 13:22 MCHC 33.8 g/dL (30-55) 01/16/24 13:22 RDW 12.5 % (12.1-15.1) 01/16/24 13:22 Plt Count 226 10^3/cmm (157-399) 01/16/24 13:22 MPV 10.5 fL (7.4-10.4) H 01/16/24 13:22 Neut % (Auto) 73.1 % 01/16/24 13:22 Lymph % (Auto) 16.0 % 01/16/24 13:22 [place] % (Auto) 9.1 % 01/16/24 13:22 Eos % (Auto) 0.6 % 01/16/24 13:22 Baso % (Auto) 0.6 % 01/16/24 13:22 Neut # (Auto) 6.30 10^3/uL (1.8-7.7) 01/16/24 13:22 Lymph # (Auto) 1.4 10^3/uL (0.8-4.8) 01/16/24 13:22 [place] # (Auto) 0.8 10^3/uL (0.2-0.9) 01/16/24 13:22 Eos # (Auto) 0.1 10^3/uL (0.0-0.8) 01/16/24 13:22 Baso # (Auto) 0.1 10^3/uL (0.0-0.1) 01/16/24 13:22 Nucleated RBC % (auto) 0 % 01/16/24 13:22 Nucleated RBCs # 0.0 /100WBC 01/16/24 13:22 Sodium 138 mmol/L (136-145) 01/16/24 13:22 Potassium 4.0 mmol/L (3.5-5.1) 01/16/24 13:22 Chloride 102 mmol/L (98-107) 01/16/24 13:22 Carbon Dioxide 21 mmol/L (22-29) L 01/16/24 13:22 Anion Gap 19.0 (5-19) 01/16/24 13:22 BUN 16 mg/dL (8-23) 01/16/24 13:22 Creatinine 1.1 mg/dL (0.7-1.2) 01/16/24 13:22 GFR Calculation 66.4 mL/min (90-130) L 01/16/24 13:22 Glucose 150 mg/dL (65-115) H 01/16/24 13:22 POC Glucose 105 mg/dL (70-110) 01/16/24 16:54 Calculated Osmolality 290 mOsm/kg (285-295) 01/16/24 13:22 Calcium 9.9 mg/dL (8.5-10.5) 01/16/24 13:22 Total Bilirubin 0.6 mg/dL (0.15-1.2) 01/16/24 13:22 AST 28 U/L (0-40) 01/16/24 13:22 ALT 41 U/L (0-41) 01/16/24 13:22 Alkaline Phosphatase 74 U/L (40-130) 01/16/24 13:22 Creatine Kinase 82 U/L (39-308) 01/16/24 13:22 Troponin T Baseline 12 ng/L (0-15) 01/16/24 13:22 Troponin T 120 Minute 13.03 ng/L (0-15) 01/16/24 15:24 Delta Troponin T 1.03 ABS# (0-10) 01/16/24 15:24 NT-Pro-B Natriuret Pep < 36 pg/mL (0-125) 01/16/24 13:22 Total Protein 7.6 g/dL (6.6-8.7) 01/16/24 13:22 Albumin 4.5 g/dL (3.5-5.2) 01/16/24 13:22 Globulin 3.1 g/dL (1.3-4.6) 01/16/24 13:22 Lipase 19 U/L (13-60) 01/16/24 13:22 Procalcitonin 0.05 ng/mL (0-0.5) 01/16/24 13:22 Coronavirus (PCR) Negative (Negative) 01/16/24 13:48 Influenza A (PCR) Negative (Negative) 01/16/24 13:48 Influenza Type B (PCR) Negative (Negative) 01/16/24 13:48 RSV (PCR) Negative (Negative) 01/16/24 13:48 All radiology interpretation(s) finalized by discharge Discharge Plan Discharge Patient Disposition: Home Clinical Impression: Dyspnea Condition: Stable Prescriptions: No Action omeprazole 20 mg capsule,delayed release(DR/EC) 20 mg PO DAILY valsartan-hydrochlorothiazide 160-12.5 mg tablet 1 tab PO BID hydrocodone-acetaminophen 10-325 mg tablet 1 tab PO Q4H tamsulosin 0.4 mg capsule 0.4 mg PO DAILY fluoride (sodium) 1.1 % gel 1 applic PO QPM Discharge Orders: Discharge ED (Routine); Ordered 01/16/24 Ordered By: Vishal Marlow Discharge Diet: Usual diet Discharge Activity: Increase activity as tolerated Patient Instructions: Opioid Safety, Pain Management Activity Restrictions/Additional Instructions: Thank you for choosing [facility] for your healthcare needs today. It is very important that you follow up as instructed or that you return to the Emergency Department should you have concerns or if your condition changes or worsens in any way. You are seen in the emergency room with complaint of shortness of breath and abdominal discomfort. CT chest x-ray and laboratory test were all negative no acute findings were made. Suspect some of this may be related to chronic medical problems. You are also asked about sleep and difficulty with your BiPAP recommend that you follow-up with your primary care doctor regarding these issues. Coding Level of Care Code ED Computer Specialist for Dedra Godwin
[2024-01-16 13:30] LABS: Basophils # 0.1 10^3/uL (0.0-0.1); Basophils % 0.6 %; Eosinophils # 0.1 10^3/uL (0.0-0.8); Eosinophils % 0.6 %; Hematocrit 45.5 % (37-53); Lymphocytes # 1.4 10^3/uL (0.8-4.8); Mean Corpuscular HGB Conc 33.8 g/dL (30-55); Mean Corpuscular Hemoglobin 31.1 pg (27-33); Mean Corpuscular Volume 91.9 fl (82-101); Mean Platelet Volume 10.5 fL (7.4-10.4); Monocytes # 0.8 10^3/uL (0.2-0.9); Monocytes % 9.1 %; Neutrophils % 73.1 %; Nucleated Red Blood Cells % 0 %; Platelet Count 226 10^3/cmm (157-399); Red Blood Count 4.95 10^6/uL (3.85-5.65); Red Cell Distribution Width 12.5 % (12.1-15.1); White Blood Count 8.61 10^3/uL (3.29-11.43)
[2024-01-16 13:52] LABS: Alanine Aminotransferase 41 U/L (0-41); Albumin Level 4.5 g/dL (3.5-5.2); Alkaline Phosphatase 74 U/L (40-130); Aspartate Amino Transferase 28 U/L (0-40); Blood Urea Nitrogen 16 mg/dL (8-23); Calcium 9.9 mg/dL (8.5-10.5); Carbon Dioxide 21 mmol/L (22-29); Chloride 102 mmol/L (98-107); Creatinine Clr Calc Pharmacy 78.3015; Globulin 3.1 g/dL (1.3-4.6); Glomerular Filtration Rate 66.4 mL/min (90-130); Glucose 150 mg/dL (65-115); Lipase 19 U/L (13-60); Osmolality Calculated 290 mOsm/kg (285-295); Sodium 138 mmol/L (136-145); Total Bilirubin 0.6 mg/dL (0.15-1.2); Total Protein 7.6 g/dL (6.6-8.7)
[2024-01-16 14:08] LABS: NT Pro B Type Natriuretic Pept < 36 pg/mL (0-125); Procalcitonin 0.05 ng/mL (0-0.5)
[2024-01-16 14:18] LABS: Creatine Phosphokinase 82 U/L (39-308)
[2024-01-16 14:29] VITALS: BP 119/65; PULSE 64; O2SAT 94
[2024-01-16 14:31] LABS: Troponin(5th) Baseline 12 ng/L (0-15)
--- NOTE | 2024-01-16 14:32 | CTR_ITS ---
PROCEDURE INFORMATION: Exam: CT Abdomen And Pelvis Without Contrast Exam date and time: 01/16/2024 3:42 PM Age: 68 years old Clinical indication: Abdominal pain TECHNIQUE: Imaging protocol: Computed tomography of the abdomen and pelvis without contrast. Radiation optimization: All CT scans at this facility use at least one of these dose optimization techniques: automated exposure control; mA and/or kV adjustment per patient size (includes targeted exams where dose is matched to clinical indication); or iterative reconstruction. COMPARISON: CT abdomen pelvis w con* [id number] 12/29/2021 1:24 PM RADIATION DOSE METRICS: Total DLP (mGy-cm): 1022.1 FINDINGS: Liver: Hepatic steatosis. No suspicious mass. Gallbladder and biliary ducts: Normal. No calcified stones. No ductal dilation. Pancreas: Normal. No ductal dilation. Spleen: Spleen is mildly enlarged, measuring 13.2 cm AP. Adrenal glands: 0.9 cm fat containing right adrenal nodule. Kidneys and ureters: Nonobstructing left renal calculi measuring up to 0.3 cm. No hydronephrosis. Stomach and bowel: Unremarkable. No obstruction. No mucosal thickening. Mild sigmoid diverticulosis without evidence of acute diverticulitis. Appendix: No evidence of appendicitis. Intraperitoneal space: Unremarkable. No free air. No significant fluid collection. Vasculature: Mild aortoiliac calcifications. No aortic aneurysm. Lymph nodes: Unremarkable. No enlarged lymph nodes. Urinary bladder: Mild circumferential bladder wall thickening. Reproductive: The prostate is enlarged. Symmetric seminal vesicles. Bones/joints: Mild degenerative changes of the lumbar spine. No acute fracture. Soft tissues: Small fat containing umbilical hernia. CT/CT abdomen pelvis con [id number] IMPRESSION: 1. No acute findings in the abdomen/pelvis. 2. Diffuse bladder wall thickening is likely exaggerated by underdistention and may be due to chronic outlet obstruction. Correlate with urinalysis and physical exam findings to exclude cystitis. 3. Hepatic steatosis. 4. Mild splenomegaly. 5. Punctate nonobstructing left renal calculi. 6. Prostatomegaly. Correlate with the of the levels. 7. Fat containing right adrenal nodule is compatible with an adrenal myelolipoma.
[2024-01-16 14:33] LABS: Covid PCR NEGATIVE (Negative); Influenza A NEGATIVE (Negative); Influenza B NEGATIVE (Negative); Respiratory Syncytial Virus Ce NEGATIVE (Negative)
[2024-01-16 15:47] LABS: Troponin 5 2HR 13.03 ng/L (0-15); Troponin 5 2HR Delta 1.03 ABS# (0-10)
[2024-01-16 16:43] VITALS: BP 117/69; PULSE 73; O2SAT 95
--- NOTE | 2024-01-16 16:47 | ECG_ITS ---
[facility]24[facility]16 Pat Name: Coy Young Department: Room: Gender: Male [employer] Recruiter: : [id number] Requested By: Vishal Hdez Order Number: [id number] Reading MD: ELROY ZAVALA Measurements Intervals [place] Rate: 65 P: 37 IA: 171 QRS: 39 QRSD: 81 T: 33 QT: 397 QTc: 415 Interpretive Statements SINUS RHYTHM Compared to ECG 01/16/2024 13:03:42 No significant changes Electronically Signed On 01-18-2024 16:17:07 ENVIRONMENTAL PROTECTION SPECIALIST by ELROY ZAVALA [email or web address]
[2024-01-16 16:58] LABS: Glucose Point of Care 105 mg/dL (70-110)
[2024-01-16 17:50] VITALS: O2SAT 94; O2SAT 96
== END 2024-01-16 17:50 | disposition home or self-care (01) ==
PROVIDERS: Emergency Medicine; Emergency Provider Family Medicine
DX: R06.00 Dyspnea, unspecified (principal); Z11.52 Encounter for screening for COVID-19
CPT/HCPCS: 0241U; 36415; 36416; 71045; 74176; 80053; 82550; 82962; 83690; 83880; 84145; 84484; 85025; 87040; 93005; 94760; 99285